=== PATIENT | female | born 1980 | race Caucasian/White ===

== ENCOUNTER 2017-11-15 17:56 | Emergency (ER) | payer OTHER ==
[~2017-11-15] VITALS: Ht 157.5 cm; Wt 95.3 kg
[2017-11-15] MEDS ORDERED: METOCLOPRAMIDE HCL 10 MG/2ML VIAL IV ONE (19:00)
[2017-11-15] MEDS ORDERED: DIPHENHYDRAMINE HCL INJ 50 MG/ML VIAL IV ONE (19:00)
[2017-11-15] MEDS ORDERED: SODIUM CHLORIDE 0.9% 1000ML 1,000 ML IV ONE (19:00)
[2017-11-15] MEDS ORDERED: DEXAMETHASONE SOD PHOS 10 MG/1 ML VIAL IV ONE (19:00)
[2017-11-15] MEDS ORDERED: KETOROLAC TROMETHAMINE 30 MG/ML VIAL IV STA (20:55)
[2017-11-15] MEDS ORDERED: ONDANSETRON HCL4 MG PO (21:54)
[2017-11-15] MEDS ORDERED: FIORINAL 50-321 EACH PO (21:56)
[2017-11-15 22:09] VITALS: BP 144/72
== END 2017-11-15 22:05 | disposition home or self-care (01) ==
LOC: FSED 17:56
DX: G43.839 Menstrual migraine, intractable, without status migrainosus (principal); R11.2 Nausea with vomiting, unspecified
CPT/HCPCS: 70450; 80048; 85025; 96360; 96374; 96375; 99284; J1100; J1200; J1885; J2765